=== PATIENT | female | born 1955 | race Caucasian/White ===

== ENCOUNTER 2018-08-25 02:39 | Observation (INO) | payer MEDICARE ==
[~2018-08-25] VITALS: Ht 160 cm; Wt 72.7 kg
[2018-08-25] MEDS ORDERED: normal saline 1000ML IV soln IVB ONE ×2 (02:50)
[2018-08-25] MEDS ORDERED: diphenhydrAMINE 50 mg/ml inj IV ONE (02:50)
[2018-08-25] MEDS ORDERED: metoclopramide 5 mg/ml inj IV ONE (02:50)
[2018-08-25] MEDS ORDERED: LORazepam 2 mg/ml vial IV ONE (02:55)
[2018-08-25] MEDS ORDERED: glycopyrrolate 0.2mg/ml inj IV ONE (02:55)
[2018-08-25 03:19] LABS: ALBUMIN 4.1 G/DL (3.4-5.0); ALBUMIN/GLOBULIN RATIO 1.1 (1.1-1.5); ANION GAP 16 (8-16); ASPARTATE AMINO TRANSFERASE 24 U/L (10-37); BILIRUBIN,TOTAL 0.6 MG/DL (0.1-1.0); BLOOD UREA NITROGEN 20 MG/DL (7-18); BUN/CREATININE RATIO 14.9 (6.6-38.0); CALCIUM 9.9 MG/DL (8.5-10.1); CHLORIDE 101 MMOL/L (99-107); CREATININE 1.34 MG/DL (0.40-0.90); GLUCOSE 176 MG/DL (70-104); POTASSIUM 3.6 MMOL/L (3.5-5.1); SODIUM 138 MMOL/L (135-145); TOTAL CARBON DIOXIDE 20.9 MMOL/L (24-32); TOTAL PROTEIN 7.8 G/DL (6.4-8.2); eGFR 40 ML/MIN
[2018-08-25 03:20] LABS: ALANINE AMINOTRANSFERASE 37 U/L (12-78); ALKALINE PHOSPHATASE 101 IU/L (46-116)
[2018-08-25 03:26] LABS: BASOPHILS % (AUTO) 0.2 % (0-1); EOSINOPHILS # (AUTO) 0.3 X10'3 (0-0.9); EOSINOPHILS % (AUTO) 2.4 % (0-6); HEMATOCRIT 43.3 % (35.0-45.0); HEMOGLOBIN 14.5 g/dl (12.0-16.0); LYMPHOCYTES # (AUTO) 1.7 X10'3 (1.1-4.8); LYMPHOCYTES % (AUTO) 12.5 % (21-51); MEAN CORPUSCULAR HGB CONC 33.4 g/dL (33.0-36.5); MEAN CORPUSCULAR VOLUME 98.6 FL (78-98); MEAN PLATELET VOLUME 8.9 FL (7.4-10.4); MONOCYTES # (AUTO) 0.6 X10'3 (0-0.9); MONOCYTES % (AUTO) 4.6 % (2-12); NEUTROPHILS # (AUTO) 10.7 X10'3 (1.8-7.7); NEUTROPHILS % (AUTO) 80.3 % (42-75); PLATELET COUNT 301 X10'3 (140-440); RED BLOOD COUNT 4.39 X10'6 (4.20-5.60); RED CELL DISTRIBUTION WIDTH 13.8 % (11.5-14.5); WHITE BLOOD COUNT 13.4 X10'3 (4.5-11.0)
[2018-08-25] MEDS ORDERED: piperacillin/tazo 3.375gm/50ml 50 ML IV ONE (05:20)
[2018-08-25] MEDS ORDERED: SERT100T PO (05:27)
[2018-08-25] MEDS ORDERED: OMEP20CA11 PO (05:27)
[2018-08-25] MEDS ORDERED: LISI1TAB9 PO (05:27)
[2018-08-25] MEDS ORDERED: LEVO125T8 PO (05:27)
[2018-08-25] MEDS ORDERED: ATOR10TA70 PO (05:27)
[2018-08-25] MEDS ORDERED: PROP10TA10 PO (05:44)
[2018-08-25] MEDS ORDERED: dextrose 5%-1/2 normal saline 1,000 ML IV SCH (06:09)
[2018-08-25] MEDS ORDERED: magnesium hydroxide 30ml (MOM) UD suspension PO PRN (06:10)
[2018-08-25] MEDS ORDERED: morphine 2 MG/ML inj. syringe IV PRN ×2 (06:10)
[2018-08-25] MEDS ORDERED: acetaminophen 325mg tablet PO PRN ×2 (06:10)
[2018-08-25] MEDS ORDERED: mag hydrox/Alum hydrox/simeth 30ml oral suspension PO PRN (06:10)
[2018-08-25] MEDS ORDERED: ondansetron/PF 4mg/2ml inj IV PRN (06:10)
--- NOTE | 2018-08-25 06:32 | NUR ---
PATIENT ON BED AWAKE,DENIES COMPLAINTS AT THIS TIME,AWAITING ROOM ASSIGNMENT.
[2018-08-25 07:01] LABS: URINE HCG NEGATIVE (NEG)
[2018-08-25 07:02] LABS: COLOR,URINE YELLOW (Yellow); GLUCOSE, URINE NEGATIVE (Neg); KETONES,URINE TRACE mg/dl (Neg); LEUKOCYTE ESTERASE ,URINE SMALL (Neg); NITRITES, URINE POSITIVE (Neg); OCCULT BLOOD,URINE NEGATIVE (Neg); PROTEIN,URINE TRACE mg/dl (Neg); UROBILINOGEN,URINE 0.2 E.U/dL (0.2-1.0)
[2018-08-25 07:09] LABS: CLARITY,URINE SLIGHTLY CLOUDY (Clear); UA COLLECTION TYPE CLN CATCH MIDSTREAM
[2018-08-25 07:10] LABS: BACTERIA,URINE 4+ /HPF (Neg); RBC,URINE NONE SEEN /HPF (0-2)
[2018-08-25 07:11] LABS: MUCUS STRANDS NONE SEEN /LPF (Neg); SQUAMOUS EPITHELIAL CELL,UR FEW /LPF (FEW)
[2018-08-25] MEDS ORDERED: pantoprazole 40mg Tablet.DR PO SCH (07:30)
--- NOTE | 2018-08-25 07:30 | NUR ---
Received report from NELA Badillo. Patient arrived to floor. VSS. No complaints.
[2018-08-25 07:42] VITALS: BP 156/72
[2018-08-25] MEDS ORDERED: atorvastatin 10mg tablet PO SCH (08:00)
[2018-08-25] MEDS ORDERED: propranolol 10mg tablet PO SCH (08:00)
[2018-08-25] MEDS ORDERED: sertraline 50mg tablet PO SCH (08:00)
[2018-08-25] MEDS ORDERED: levoTHYROXINE 125mcg tablet PO SCH (08:00)
[2018-08-25] MEDS ORDERED: CHOL10002 PO (08:48)
[2018-08-25] MEDS ORDERED: MULT-955 PO (08:49)
[2018-08-25 11:00] VITALS: BP 161/73
[2018-08-25] MEDS ORDERED: AMLO10TA4 PO (12:49)
[2018-08-25] MEDS ORDERED: CEFD300C3 PO (12:49)
[2018-08-25] MEDS ORDERED: cefpodoxime proxetil 100mg tablet PO SCH (12:55)
--- NOTE | 2018-08-25 13:00 | NUR ---
Patient discharged home stable and appropriate. IV removed. New prescriptions called into [facility]. All belongings taken from room.
== END 2018-08-25 13:20 | disposition home or self-care (01) ==
LOC: ER 02:40 → SUR 3N 07:17
PROVIDERS: ADMIT Internal Medicine; ATTEND Internal Medicine
DX: R10.9 Unspecified abdominal pain (principal); R11.2 Nausea with vomiting, unspecified; E78.5 Hyperlipidemia, unspecified; E03.9 Hypothyroidism, unspecified; I10 Essential (primary) hypertension; F32.9 Major depressive disorder, single episode, unspecified; F17.210 Nicotine dependence, cigarettes, uncomplicated; Z90.710 Acquired absence of both cervix and uterus
CPT/HCPCS: 36415; 74176; 80053; 81001; 81025; 84145; 85025; 85610; 87077; 87081; 87088; 87186; 93005; 96374; 96375; 99284; G0378; J1200; J2060; J2543; J2765; J3490

== ENCOUNTER 2023-02-14 14:39 | Emergency (ER) | payer MEDICARE ==
[~2023-02-14] VITALS: Ht 160 cm; Wt 69.1 kg
[~2023-02-14 14:39] MED LIST: AMLO10TA4 PO; ATOR10TA70 PO; CHOL10002 PO; LEVO125T8 PO; MULT-955 PO; OMEP20CA15 PO; PROP10TA10 PO; SERT100T PO
[2023-02-14 15:14] LABS: URINE HCG NEGATIVE (NEG)
[2023-02-14] MEDS ORDERED: ondansetron/PF 4mg/2ml inj IV ONE (15:25)
[2023-02-14] MEDS ORDERED: normal saline 1000ml 1,000 ML IV ONE (15:25)
[2023-02-14] MEDS ORDERED: pantoprazole 40 MG vial IV SCH (15:40)
[2023-02-14 15:41] LABS: BASOPHILS % (AUTO) 0.3 % (0-1); EOSINOPHILS % (AUTO) 0.3 % (0-6); HEMATOCRIT 41.1 % (35.0-45.0); HEMOGLOBIN 13.9 g/dl (12.0-16.0); LYMPHOCYTES # (AUTO) 0.7 X10'3 (1.1-4.8); LYMPHOCYTES % (AUTO) 6.9 % (21-51); MEAN CORPUSCULAR HEMOGLOBIN 33.9 PG (27.0-31.0); MEAN CORPUSCULAR HGB CONC 33.8 g/dL (33.0-36.5); MEAN CORPUSCULAR VOLUME 100.2 FL (78-98); MONOCYTES # (AUTO) 0.3 X10'3 (0-0.9); MONOCYTES % (AUTO) 3.4 % (2-12); NEUTROPHILS # (AUTO) 8.6 X10'3 (1.8-7.7); NEUTROPHILS % (AUTO) 89.1 % (42-75); PLATELET COUNT 267 X10'3 (140-440); RED CELL DISTRIBUTION WIDTH 13.9 % (11.5-14.5); WHITE BLOOD COUNT 9.7 X10'3 (4.5-11.0)
[2023-02-14 15:55] LABS: ALANINE AMINOTRANSFERASE 39 U/L (12-78); ALBUMIN 3.9 G/DL (3.4-5.0); ALKALINE PHOSPHATASE 92 IU/L (46-116); ANION GAP 16 (8-16); ASPARTATE AMINO TRANSFERASE 25 U/L (10-37); BILIRUBIN,TOTAL 0.4 MG/DL (0.1-1.0); BLOOD UREA NITROGEN 15 MG/DL (7-18); BUN/CREATININE RATIO 14.4 (10.0-20.0); CALCIUM 9.9 MG/DL (8.5-10.1); CHLORIDE 102 MMOL/L (99-107); CREATININE 1.04 MG/DL (0.40-0.90); GLUCOSE 140 MG/DL (70-104); LIPASE 37 U/L (16-77); POTASSIUM 3.9 MMOL/L (3.5-5.1); SODIUM 137 MMOL/L (135-145); TOTAL CARBON DIOXIDE 19.4 MMOL/L (24-32); TOTAL PROTEIN 7.9 G/DL (6.4-8.2); eCRCL 45 ML/MIN; eGFR 53 ML/MIN
[2023-02-14 16:07] VITALS: BP 156/81; PULSE 76; RESP 18; TEMP 97.1; O2SAT 97
[2023-02-14 16:39] LABS: BILIRUBIN,URINE SMALL (Neg); CLARITY,URINE SLIGHTLY CLOUDY (Clear); GLUCOSE, URINE NEGATIVE (Neg); KETONES,URINE 15 mg/dl (Neg); LEUKOCYTE ESTERASE ,URINE NEGATIVE (Neg); NITRITES, URINE NEGATIVE (Neg); OCCULT BLOOD,URINE NEGATIVE (Neg); PROTEIN,URINE 100 mg/dl (Neg); UROBILINOGEN,URINE 0.2 E.U/dL (0.2-1.0)
[2023-02-14 16:40] LABS: COLOR,URINE DARK YELLOW (Yellow); UA COLLECTION TYPE CLN CATCH MIDSTREAM
[2023-02-14 16:47] LABS: BACTERIA,URINE FEW /HPF (Neg); MUCUS STRANDS FEW /LPF (Neg); RBC,URINE NONE SEEN /HPF (0-2); SQUAMOUS EPITHELIAL CELL,UR FEW /LPF (FEW); WBC,URINE 0-4 /HPF (0-4)
[2023-02-14 16:48] LABS: FINE GRANULAR CAST 0-3 /LPF (NEGATIVE)
[2023-02-14] MEDS ORDERED: ONDA4TAB12 PO (16:51)
== END 2023-02-14 17:11 | disposition home or self-care (01) ==
LOC: ER 14:39
DX: R11.10 Vomiting, unspecified (principal); I10 Essential (primary) hypertension; E03.9 Hypothyroidism, unspecified; Z79.899 Other long term (current) drug therapy; Z88.8 Allergy status to other drugs, medicaments and biological substances
CPT/HCPCS: 36415; 80053; 81001; 81025; 83690; 85025; 96361; 96374; 96375; 99284; C9113; J2405; J7030

== ENCOUNTER 2023-09-10 12:09 | Emergency (ER) | payer MEDICARE, OTHER ==
[~2023-09-10] VITALS: Ht 160 cm; Wt 70.4 kg
[~2023-09-10 12:09] MED LIST changes: +ONDA-243 PO
[2023-09-10 12:19] VITALS: BP 140/53; PULSE 71; TEMP 97.8; O2SAT 98
[2023-09-10] MEDS ORDERED: CYCL-1 PO (13:13)
[2023-09-10 13:16] VITALS: RESP 16
[2023-09-10] MEDS: ketorolac tromethamine 15mg/ml inj. IM ONE (13:16)
== END 2023-09-10 13:24 | disposition home or self-care (01) ==
LOC: ER 12:10
DX: M54.17 Radiculopathy, lumbosacral region (principal); I10 Essential (primary) hypertension; E03.9 Hypothyroidism, unspecified; F32.A Depression, unspecified; Z88.8 Allergy status to other drugs, medicaments and biological substances; Z79.899 Other long term (current) drug therapy
CPT/HCPCS: 73502; 96372; 99284; J1885

== ENCOUNTER 2024-02-06 10:28 | Outpatient (CLI) | payer MEDICARE, OTHER ==
[~2024-02-06 10:28] MED LIST changes: +CYCL-1 PO
== END 2024-02-06 23:59 | disposition home or self-care (01) ==
LOC: MRI02 10:28
PROVIDERS: ATTEND Physician Assistant Surgical
DX: M16.11 Unilateral primary osteoarthritis, right hip (principal); M25.451 Effusion, right hip; M25.551 Pain in right hip
CPT/HCPCS: 73721